=== PATIENT | female | born 1975 | race Caucasian/White ===

== ENCOUNTER 2019-05-26 17:21 | Emergency (ER) | payer BC ==
[~2019-05-26] VITALS: Ht 154.9 cm; Wt 49.9 kg
== END 2019-05-26 20:40 | disposition home or self-care (01) ==
LOC: ER 17:21
DX: S01.82XA Laceration with foreign body of other part of head, initial encounter (principal); W18.39XA Other fall on same level, initial encounter; Y93.01 Activity, walking, marching and hiking; Y92.488 Other paved roadways as the place of occurrence of the external cause; Y99.8 Other external cause status